=== PATIENT | female | born 1975 ===

== ENCOUNTER → 2021-06-20 | Outpatient (CLI) | payer OTHER ==
[~2021-06-20] MED LIST: ACET500T68 PO; BUPR150T15 PO; CYCL10TA19 PO; DICL112S2 TP; EPIPEN 2-P0.3 MG/0.3 IM; FLUT1BLS3 IH; FURO-69 PO; GABA600T7 PO; GUAI600T80 PO; HYDR-2761 PO; IBUP-1739 PO; LORA10TA3 PO; METO50TA6 PO; NABU500T11 PO; PANT40TA77 PO; POTA-121 PO; SIMV20TA18 PO; TRAM50TA PO; VENTOLIN HFA18 GM INH; sumatriptan
--- NOTE | 2021-06-20 12:43 | PDOC1 ---
INITIAL PAIN CONSULT DATE OF SERVICE: DOS: DATE: 06/20/21 TIME: 12:35 CHIEF COMPLAINT: Chief Complaint: Low back and bilateral lower extremity pain HISTORY OF PRESENT ILLNESS: 45-year female presents with history of pain low back bilateral lower extremities for many years original injury patient reports was in 2006 she has had multiple injuries over the years but nothing recently has had pain for that same time. Now mostly in the low back and in the bilateral lower extremities patient reports some pain in the neck and shoulders and has had 7 cervical surgeries as well as 5 right shoulder surgeries in the past but her chief complaint is low back and bilateral lower extremity pain with pain across low back in the posterior gluteus lateral thighs anterior thighs medial thighs in the medial calves and the posterior calves as well at times patient reports is worse with walking standing changing positions wakes her from sleep at least 6-8 times every night can affect her bowel bladder control but no loss of continence patient reports increased frequency though. Patient reports infection ability to walk significantly she has braces on both knees and uses a walker which she has with her today as well. Patient reports has been to this level for about 2years she has been taking [id number] Tylenol with ibuprofen also had a prescription gabapentin which caused significant weight gain and was discontinued patient has had physical therapy currently doing exercise without as well also chiropractic treatment and TENS unit use with physical therapy all of which by her report made the pain worse. 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 Patient did have a MRI scan of the lumbar spine showing at L3-4 moderate facet arthropathy with joint effusions present and a small disc bulge L4-5 shows small disc bulges with moderate bilateral facet arthropathy and mild left and moderate right neuroforaminal stenosis. Patient reports no loss of motor function but significant fatigability of the lower extremities bilaterally with activity. PAST MEDICAL HISTORY: PMH: Hypertension, obesity, arthritis, gastroesophageal reflux, right eye blindness, COPD, depression, migraine headaches PREVIOUS SURGERIES: Past Surgical Hx: Cervical surgery x7, right shoulder surgery x5, bilateral carpal tunnel repair CURRENT MEDICATIONS: Current Meds: Active Scripts Medications Dose Route/Sig Max Daily Dose Days Date Category Epipen 2-Taco (Epinephrine) 0.3 Mg/0.3 Ml Auto.injct 1 Syr IM ONCE 1 06/20/21 Reported Cyclobenzaprine Hcl 10 Mg Tablet 1 Tab PO TID PRN 06/20/21 Reported Wellbutrin Xl (Bupropion Hcl) 150 Mg Tab.er.24h 150 Mg PO DAILY 06/20/21 Reported Simvastatin 20 Mg Tablet 1 Tab PO QHS 06/20/21 Reported Nabumetone 500 Mg Tablet 1 Tab PO BID 06/20/21 Reported Metoprolol Tartrate 50 Mg Tablet 1 Tab PO DAILY 06/20/21 Reported Lasix (Furosemide) 20 Mg Tablet 1 Tab PO BID 30 06/20/21 Reported Klor-Con M20 (Potassium Chloride) 20 Meq Tab.er.prt 20 Meq PO DAILY 06/20/21 Reported Ventolin Hfa Inhaler (Albuterol Sulfate) 18 Gm Hfa.aer.ad 2 Puff INH QID 06/20/21 Reported Trelegy Ellipta 100-62.5-25 (Fluticasone/Umeclidin/Vilanter) 1 Each Blst.w.dev 1 Each IH DAILY 06/20/21 Reported Acetaminophen 500 Mg Tablet 1 Tab PO PRN Q6HRS PRN 15 06/20/21 Reported Ibuprofen 100 Mg/5 Ml Oral.susp 200 Mg PO PRN PRN 06/20/21 Reported Pantoprazole Sodium (Pantoprazole Sodium) 40 Mg Tablet.dr 40 Mg PO DAILYAC 06/20/21 Reported ALLERGIES; Allergies: Coded Allergies: honey (Verified Adverse Reaction, Intermediate, 06/17/21) oats (Verified Adverse Reaction, Intermediate, 06/17/21) sulfamethoxazole (Verified Adverse Reaction, Intermediate, 06/17/21) trimethoprim (Verified Adverse Reaction, Intermediate, 06/17/21) FAMILY HISTORY: Family Hx: No known medical problems or conditions SOCIAL HISTORY: Social Hx: Patient dark alcohol does smoke about 1 pack cigarettes a day has for 42 years continues to smoke, is , is currently on disability secondary to current pain issue, and lives in [facility] REVIEW OF SYSTEMS: ROS: Positive for those items mentioned in history of present illness, all systems are reviewed, otherwise negative ,and are complete full and well-documented on patient's chart. PHYSICAL EXAM: VS: Blood pressure 133 over pulse 96 respirations 18 temperature 90.0 F height is 5 foot 1 inches weight is 283 pounds. PE: PHYSICAL EXAMINATION: GENERAL: The patient is awake, alert, oriented, appropriate, very pleasant in demeanor HEENT: Shows normocephalic, atraumatic. Extraocular movements are intact and symmetrical. Oral cavity: Mucous membranes moist and pink. Dentition is intact. NECK: Shows anterior throat supple without palpable lymphadenopathy noted. Swallow reflex symmetrical. CHEST: Shows normal on inspection. Breath sounds are clear bilaterally, coarse and distant but no rales rhonchi or wheezes auscultated. HEART: Shows S1, S2 clear. No murmurs auscultated. ABDOMEN: Soft, nontender, nondistended, obese. No palpable organomegaly is noted. BACK: Shows spine grossly in the midline. Normal-appearing cervical lordotic curvature. There is mildly increased thoracic kyphosis, some minor flattening of the lumbar lordotic curvature. Lumbar paraspinous muscles show symmetrical on inspection, on palpation shows some moderate tenderness diffusely throughout the upper, middle and lower distribution of the paraspinous muscles bilaterally and also into the lower thoracic paraspinous musculature, firm and tender, but without specific trigger points, without radiation of pain. The patient has goo d rotational motion of the lumbar spine, both laterally as well as extension and flexion without significant difficulty. No tenderness over the spinous processes, sacrum or sacroiliac regions. EXTREMITIES: Lower extremities show deep tendon reflexes 1+ in the patellar and tendo calcaneus tendons. Motor exam is 4 on a scale of 5 with right dorsiflexion, extension, quadriceps and hamstring flexion and 4/5 on the left. Peripheral pulses are 1+ posterior tibial. No peripheral edema is noted bilaterally. Patient wearing knee braces on bilateral knees. Lower extremities are warm and dry to touch, equal in color and appearance. Straight leg raise noted to be positive bilaterally at approximately 35 to 40 degrees decreased with knee flexion. Gaenslen's and Casey's maneuvers are negative bilaterally. SKIN: Shows warm and dry, good turgor. No edema. No sores, rashes or bruising throughout. IMPRESSION: Impression: 45-year-old female with long history of low back pain with bilateral lower extremity pain worse over the past 2 years and radicular fashion following L4-5 dermatomal distribution. MRI scan lumbar spine as noted Obesity Hypertension Dizziness COPD Cigarette smoking Depression Plan: Options were discussed the patient including serve medical managements continued physical therapies and interventional techniques. Patient would like to pursue interventional techniques. We discussed a lumbar epidural steroid injections description as well as anatomical models to describe the procedure. Patient will wait for preauthorization with insurance provider, once obtained we will have her return for a translaminar approach L4-5 level lumbar epidural steroid injection with fluoroscopic guidance. In the meantime, patient will continue with stretching strength exercises well as TENS unit application oral analgesics as currently and also will prescribe new medication of Medrol Dosepak patient was given instruction as well as side effects beware with the medication. MAGDIEL TIAN MD Jun 20, 2021 12:43
== END | disposition home or self-care (01) ==
LOC: PNCL 10:48
PROVIDERS: ATTEND Anesthesiology
DX: M54.50 Low back pain, unspecified (principal); M79.605 Pain in left leg; M79.604 Pain in right leg; I10 Essential (primary) hypertension; E66.9 Obesity, unspecified; M19.90 Unspecified osteoarthritis, unspecified site; K21.9 Gastro-esophageal reflux disease without esophagitis; J44.9 Chronic obstructive pulmonary disease, unspecified; F32.9 Major depressive disorder, single episode, unspecified; G43.909 Migraine, unspecified, not intractable, without status migrainosus; Z79.899 Other long term (current) drug therapy; Z98.890 Other specified postprocedural states; Z88.2 Allergy status to sulfonamides; Z88.8 Allergy status to other drugs, medicaments and biological substances
CPT/HCPCS: G0463

== ENCOUNTER → 2021-07-04 | Outpatient (CLI) | payer OTHER ==
[~2021-07-04] MED LIST changes: +DEXAMETHASONE PRES.FREE 10 MG/ML VIAL. ONE; +IOHEXOL 180 MG/ML 10 ML VIAL. ONE
--- NOTE | 2021-07-04 14:16 | PDOC ---
Progress Note - Pain Clinic Date of Service: DOS: DATE: 07/04/21 TIME: 14:13 Diagnosis: Dx: Lumbar radiculopathy with lumbar degenerative disease and lumbar spinal stenosis History or Present Illness: HPI: 45-year-old female returns for follow-up status post initial evaluation and preauthorization for lumbar epidural steroid injection. Patient reports significant pain still in the low back and radiating into the posterior gluteus posterior lateral thigh lateral anterior thighs anteromedial thighs medial lower legs right essentially equal to left patient reports no new motor or sensory deficits no bowel or bladder incontinence describes the pain as an aching pain that sharp and dull in the back tight shooting in the legs cramping and stabbing in the back as well as radiating and constant with weightbearing patient reports is better at night but it wakes her from sleep about every 3-4 hours patient r ates her pain a 10 on scale 10 is worst average and 8 at its least and is a 10 today. Patient reports no bowel or bladder incontinence no other changes. Physical Exam: VS: Blood pressure is 150/81 pulse is 99 respirations 18 temperature 1 F weight is 285 pounds PE: PHYSICAL EXAMINATION: GENERAL: The patient is awake, alert, oriented, appropriate, very pleasant in demeanor HEENT: Shows normocephalic, atraumatic. Extraocular movements are intact and symmetrical. Oral cavity: Mucous membranes moist and pink. NECK: Shows anterior throat supple without palpable lymphadenopathy noted. Swallow reflex symmetrical. CHEST: Shows normal on inspection. Breath sounds are clear bilaterally. HEART: Shows S1, S2 clear. No murmurs auscultated. ABDOMEN: Soft, nontender, nondistended. No palpable organomegaly is noted. BACK: Shows spine grossly in the midline. Normal-appearing cervical lordotic curvature. There is moderately increased thoracic kyphosis, some flattening of the lumbar lordotic curvature. Lumbar paraspinous muscles show symmetrical on inspection, on palpation shows some moderate tenderness diffusely throughout the upper, middle and lower distribution of the paraspinous muscles, but without specific trigger points, without radiation of pain. The patient has good rotational motion of the lumbar spine, both laterally as well as extension and flexion without significant difficulty. EXTREMITIES: Lower extremities show deep tendon reflexes 1+ in the patellar and tendo calcaneus tendons. Motor exam is 4 on a scale of 5 with right dorsiflexion, extension, quadriceps and hamstring flexion and 4/5 on the left. Peripheral pulses are 1+ posterior tibial. No peripheral edema is noted bilaterally. Lower extremities are warm and dry to touch, equal in color and appearance. SKIN: Shows warm and dry, good turgor. No edema. No sores, rashes or bruising throughout. Procedure: Procedure: Options were discussed with the patient. Patient's old chart was reviewed as her current medication regimen updated her review of systems updated today as well. We will proceed with a lumbar epidural steroid injection today with fluoroscopic guidance risks were discussed including but not limited to: Bleeding, infection, possibility of epidural hematoma and subsequent neurological compromise, dural puncture, headaches, spinal cord and/or nerve damage, side effects of steroid medication, and poor results regarding pain control. Patient understands and wished to proceed. Patient will return to the clinic in approximately 2 weeks for follow-up, was counseled as to return ap pointment, active level, and side effects to be aware of. Medication Injected: Med Injected: Procedure is lumbar epidural steroid injection under local anesthetic using sterile prep and drape at the L4-5 level using C-arm fluoroscopic guidance in both AP and lateral views medications injected is 120 mg methylprednisolone +10mL preservative-free normal saline and 2 mL contrast- condition at discharge is stable patient tolerated procedure well had no complications. Condition at Discharge: Condition at Discharge: Condition at discharge is stable, patient tolerated the procedure well and had no complications. MAGDIEL TIAN MD Jul 04, 2021 14:16
--- NOTE | 2021-07-04 14:16 | PDOC4 ---
Procedure Note: ICD 10 Code: ICD 10 Code: M54.16 M51.36 M48.06 Procedure Note: Patient was consented for lumbar epidural steroid injection with fluoroscopic guidance. Risks were discussed including but not limited to: Bleeding, infection, possibility of epidural hematoma and subsequent neurological compromise, dural puncture, headaches, spinal cord and/or nerve damage, side effects of steroid medication, and poor results regarding pain control. Patient understands and wished to proceed. Procedure is lumbar epidural steroid injection under local anesthetic using ster ile prep and drape at the L4-5 level using C-arm fluoroscopic guidance in both AP and lateral views medications injected is 120 mg methylprednisolone +10mL preservative-free normal saline and 2 mL contrast- condition at discharge is stable patient tolerated procedure well had no complications. MAGDIEL TIAN MD Jul 04, 2021 14:16
== END | disposition home or self-care (01) ==
LOC: PNCL 13:22
PROVIDERS: ATTEND Anesthesiology
DX: M51.16 Intervertebral disc disorders with radiculopathy, lumbar region (principal); M48.061 Spinal stenosis, lumbar region without neurogenic claudication; Z79.899 Other long term (current) drug therapy; Z88.8 Allergy status to other drugs, medicaments and biological substances
CPT/HCPCS: 62323; J1100; Q9965

== ENCOUNTER → 2021-07-18 | Outpatient (CLI) | payer OTHER ==
[~2021-07-18] MED LIST changes: -DEXAMETHASONE PRES.FREE 10 MG/ML VIAL. ONE; -IOHEXOL 180 MG/ML 10 ML VIAL. ONE; +MAGN400C PO; +POTASSIUM
--- NOTE | 2021-07-18 14:09 | PDOC ---
Progress Note - Pain Clinic Date of Service: DOS: DATE: 07/18/21 TIME: 14:05 Diagnosis: Dx: Lumbar radiculopathy with lumbar degenerative disease and lumbar spinal stenosis History or Present Illness: HPI: 45-year-old female returns for follow-up status post lumbar epidural steroid injection x1. Patient reports about 75% improvement for the first 2 weeks and the pain returned fairly quickly in the low back and bilateral lower extremities posterior gluteus posterior thighs lateral thighs anterior thighs medial thighs medial lower legs also some knee pain bilaterally patient is wearing knee braces as well today. Patient reports that the pain is tingling and burning the back cramping stabbing shooting tight radiating can be constant and severe in the lower extremities with walking and standing patient reports initially though she is doing much better with distance walking doing household activities still using her walker she feels unstable because of her knees but her back and legs were doing much better, and she had decreased oral analgesics that she has been taking [id number] ibuprofen and Tylenol during this time. But is now taking them once again, patient reports that the pain began to return now fairly quickly after about 2 to 3 weeks and the pain is now not quite to baseline but overall about 50% improved from the initial injection patient reports wakes her from sleep occasionally will usually feels much better with sitting or laying down no loss of motor function no bowel or bladder incontinence. Patient continues to do stretching strength exercises and is walking daily with her walker as tolerated although over the past few days has been difficult because of her knee pain increasing. Patient reports no bowel or bladder incontinence. Physical Exam: VS: Blood pressure is 131/67 pulse 95 respirations 18 temperature 98.1 F weight is 293 pounds. PE: PHYSICAL EXAMINATION: GENERAL: The patient is awake, alert, oriented, appropriate, very pleasant in demeanor HEENT: Shows normocephalic, atraumatic. Extraocular movements are intact and symmetrical. Oral cavity: Mucous membranes moist and pink. Dentition is intact. NECK: Shows anterior throat supple without palpable lymphadenopathy noted. Swallow reflex symmetrical. CHEST: Shows normal on inspection. Breath sounds are clear bilaterally distant, but no rales or rhonchi auscultated. HEART: Shows S1, S2 clear. No murmurs auscultated. ABDOMEN: Soft, nontender, nondistended, obese. No palpable organomegaly is noted. BACK: Shows spine grossly in the midline. Normal-appearing cervical lordotic curvature. There is moderately increased thoracic kyphosis, some flattening of the lumbar lordotic curvature. Lumbar paraspinous muscles show symmetrical on inspection, on palpation shows some moderate tenderness diffusely throughout the upper, middle and lower distribution of the paraspinous musculature, but without specific trigger points, without radiation of pain. The patient has good rotational motion of the lumbar spine, both laterally as well as extension and flexion without significant difficulty. EXTREMITIES: Lower extremities show deep tendon reflexes 1+ to in the patellar and tendo calcaneus tendons. Motor exam is 4 on a scale of 5 with right dorsiflexion, extension, quadriceps and hamstring flexion and 4/5 on the left. Peripheral pulses are 1+ posterior tibial. No peripheral edema is noted bilaterally. Lower extremities are warm and dry. SKIN: Shows warm and dry, good turgor. No edema. No sores, rashes or bruising throughout. Procedure: Procedure: Options discussed with patient. Patient's old chart was reviewed as her current medication regimen updated current review of systems updated today as well. We will preauthorize patient for a lumbar epidural steroid injection with fluoroscopic guidance. Patient continues with significant radiculopathy and L4- 5 dermatomal distribution bilateral lower extremities, better after first injection by about 70% and initially with the pain returning following an L4-5 dermatomal distribution bilaterally, as noted. In the meantime patient will continue with stretching strength exercise as well as oral analgesics as currently. Medication Injected: Med Injected: None Condition at Discharge: Condition at Discharge: Condition at discharge is stable. MAGDIEL TIAN MD July 18, 2021 14:09
== END | disposition home or self-care (01) ==
LOC: PNCL 12:58
PROVIDERS: ATTEND Anesthesiology
DX: M51.16 Intervertebral disc disorders with radiculopathy, lumbar region (principal); M48.061 Spinal stenosis, lumbar region without neurogenic claudication; Z79.899 Other long term (current) drug therapy; Z88.2 Allergy status to sulfonamides; Z88.8 Allergy status to other drugs, medicaments and biological substances
CPT/HCPCS: 99212; G0463

== ENCOUNTER → 2021-08-03 | Outpatient (CLI) | payer OTHER ==
[~2021-08-03] MED LIST changes: +DEXAMETHASONE PRES.FREE 10 MG/ML VIAL. ONE; +IOHEXOL 180 MG/ML 10 ML VIAL. ONE
--- NOTE | 2021-08-03 13:52 | PDOC ---
Progress Note - Pain Clinic Date of Service: DOS: DATE: 08/03/21 TIME: 13:49 Diagnosis: Dx: Lumbar radiculopathy lumbar degenerative disease and lumbar spinal stenosis History or Present Illness: HPI: 45-year-old female returns for follow-up status post lumbar epidural steroid injection x1 with about 70% improvement pain returning down the low back and the bilateral lower extremities posterior gluteus posterior lateral thigh lateral anterior thighs and anterior medial lower legs patient reports its a 10 on a scale 10 at all times now over the past week least worst and average is a 10 today. Patient reports no bowel or bladder incontinence but reports is beginning to awaken her from sleep once again initially to do none much better with distance walking doing household activities travel with greater ease and sleeping better now it is becoming more noticeable in all of these aspects. Patient reports no loss of motor function but significant fatigability of both lower extremities, also no bowel or bladder incontinence. Physical Exam: VS: Blood pressure is 156/86 pulse 94 respirations 18 temperature 98.0 F height is 5 feet 1 inch weight is 290 pounds. PE: PHYSICAL EXAMINATION: GENERAL: The patient is awake, alert, oriented, appropriate, very pleasant in demeanor HEENT: Shows normocephalic, atraumatic. Extraocular movements are intact and symmetrical. Oral cavity: Mucous membranes moist and pink. Dentition is intact. NECK: Shows anterior throat supple without palpable lymphadenopathy noted. Swallow reflex symmetrical. CHEST: Shows normal on inspection. Breath sounds are clear bilaterally, distant and coarse but no rales or rhonchi auscultated. HEART: Shows S1, S2 clear. No murmurs auscultated. ABDOMEN: Soft, nontender, nondistended, obese. No palpable organomegaly is noted. BACK: Shows spine grossly in the midline. Normal-appearing cervical lordotic curvature. There is moderately increased thoracic kyphosis, some flattening of the lumbar lordotic curvature. Lumbar paraspinous muscles show symmetrical on inspection, on palpation shows some moderate tenderness diffusely throughout the upper, middle and lower distribution of the paraspinous musculature, but without specific trigger points, without radiation of pain. The patient has good rotational motion of the lumbar spine, both laterally as well as extension and flexion without significant difficulty. EXTREMITIES: Lower extremities show deep tendon reflexes 1+ in the patellar and tendo calcaneus tendons. Motor exam is 4 on a scale of 5 with right dorsiflexion, extension, quadriceps and hamstring flexion and 4/5 on the left. Peripheral pulses are 1 posterior tibial. No peripheral edema is noted bilaterally. Lower extremities are warm and dry to touch, equal in color and appearance. SKIN: Shows warm and dry, good turgor. No edema. No sores, rashes or bruising throughout. Procedure: Procedure: Options were discussed the patient. Patient's chart was reviewed as her current medication regimen updated current review of systems updated today as well. We will proceed with a lumbar epidural steroid injection today with fluoroscopic guidance. Risks were discussed including but not limited to: Bleeding, infection, possibility of epidural hematoma and subsequent neurological compromise, dural puncture, headaches, spinal cord and/or nerve damage, side effects of steroid medication, and poor results regarding pain control. Patient understands and wished to proceed. Patient will return to clinic in approximate 2 weeks for follow-up, was counseled as to return appointment, activity level, and side effects to be aware of. Medication Injected: Med Injected: Procedure is lumbar epidural steroid injection under local anesthetic using sterile prep and drape at the L4-5 level using C-arm fluoroscopic guidance in both AP and lateral views medications injected is 20 mg dexamethasone +10mL preservative-free normal saline and 2 mL contrast- condition at discharge is stable patient tolerated procedure well had no complications. Condition at Discharge: Condition at Discharge: Condition at discharge is stable, patien elevated the procedure well and had no complications. MAGDIEL TIAN MD August 03, 2021 13:52
--- NOTE | 2021-08-03 13:53 | PDOC4 ---
Procedure Note: ICD 10 Code: ICD 10 Code: M54.16 M51.36 M48.06 Procedure Note: Patient was consented for lumbar epidural steroid injection with fluoroscopic guidance. Risks were discussed including but not limited to: Bleeding, infection, possibility of epidural hematoma and subsequent neurological compromise, dural puncture, headaches, spinal cord and/or nerve damage, side effects of steroid medication, and poor results regarding pain control. Patient understands and wished to proceed. Procedure is lumbar epidural steroid injection under local anesthetic using ster ile prep and drape at the L4-5 level using C-arm fluoroscopic guidance in both AP and lateral views medications injected is 20 mg dexamethasone +10mL preservative-free normal saline and 2 mL contrast- condition at discharge is stable patient tolerated procedure well had no complications. MAGDIEL TIAN MD August 03, 2021 13:53
== END | disposition home or self-care (01) ==
LOC: PNCL 12:54
PROVIDERS: ATTEND Anesthesiology
DX: M51.16 Intervertebral disc disorders with radiculopathy, lumbar region (principal); M48.061 Spinal stenosis, lumbar region without neurogenic claudication; Z79.899 Other long term (current) drug therapy; Z88.2 Allergy status to sulfonamides; Z88.8 Allergy status to other drugs, medicaments and biological substances
CPT/HCPCS: 62323; J1100; Q9965